=== PATIENT | male | born 1980 | race Caucasian/White ===

== ENCOUNTER 2020-05-20 04:44 | Observation (INO) | payer OTHER ==
[2020-05-20] MEDS ORDERED: SODIUM CHLORIDE 0.9% 1,000 ML IV STA (04:54)
[2020-05-20] MEDS ORDERED: NALOXONE 0.4 MG/ML 1 ML VIAL IV STA (04:54)
[2020-05-20 04:56] VITALS: TEMP 97.3
[2020-05-20 04:57] LABS: Glucose,Whole Blood 205 mg/dL (75-99)
--- NOTE | 2020-05-20 04:57 | ED ---
Overdose HPI - General Chief Complaint: Overdose Stated Complaint: Overdose Time Seen by Provider: 05/20/20 04:47 Source: EMS, RN notes reviewed, old records reviewed Mode of arrival: EMS Limitations: altered mental status, physical limitation - History of Present Illness Initial Comments: This is a 40-year-old male DF for evaluation of likely overdose. Heroin and opiate overdose, unsure of overdose medications patient initially did respond to Narcan as he is improved his respiratory rate and breathing status although he is significantly still remains unresponsive. History of pain from EMS and patient's prior charting MD Complaint: intentional overdose, accidental overdose, other (Unsure situation surrounding overdose) -: unknown Intent: unknown Context: Intentional Overdose: drug/ETOH problems Context: Accidental Overdose: wanted to get high Associated Symptoms: depression, hallucinations Treatments Prior to Arrival: none - Related Data Previous Rx's Medication Instructions Recorded Divalproex [Depakote] 1,000 mg PO HS #7 dose 06/29/15 Divalproex [Depakote] 500 mg PO DAILY #7 tablet.dr 06/29/15 Escitalopram [Lexapro] 10 mg PO DAILY #7 tab 06/29/15 Paliperidone [Invega] 9 mg PO DAILY #7 dose 06/29/15 Triamcinolone 0.1% Cream [Kenalog 1 applic TOPICAL BID #1 tube 06/29/15 0.1% Cream] Trihexyphenidyl [Artane] 4 mg PO AC-TID #21 dose 06/29/15 buPROPion XL [Wellbutrin XL] 150 mg PO DAILY #7 tab.er.24h 06/29/15 clonazePAM [KlonoPIN] 0.5 mg PO BID@0800,1300 #14 tab 06/29/15 clonazePAM [KlonoPIN] 2 mg PO DAILY@2000 #7 dose 06/29/15 hydrOXYzine pamoate [Vistaril] 50 mg PO HS #7 dose 06/29/15 Allergies Allergy/AdvReac Type Severity Reaction Status Date / Time morphine Allergy Unknown Verified 06/23/15 11:25 Review of Systems ROS Statement: Those systems with pertinent positive or pertinent negative responses have been documented in the HPI. ROS Other: All systems not noted in ROS Statement are negative. Past Medical History Past Medical History: Seizure Disorder Additional Past Medical History / Comment(s): hill, rosacea History of Any Multi-Drug Resistant Organisms: None Reported Additional Past Surgical History / Comment(s): skin grafts from [place] Past Anesthesia/Blood Transfusion Reactions: No Reported Reaction Past Psychological History: Bipolar, Schizophrenia Past Alcohol Use History: None Reported Past Drug Use History: Marijuana - Past Family History Mother Family Medical History: COPD Additional Family Medical History / Comment(s): Mother is alive at age 51 with n o major medical problems. Father Family Medical History: No Reported History Additional Family Medical History / Comment(s): Father is alive at age 52 with no major medical problems. Sister(s) Additional Family Medical History / Comment(s): Patient has 1 sister with no major medical problems. General Exam General appearance: alert, in no apparent distress Head exam: Present: atraumatic, normocephalic, normal inspection Eye exam: Present: normal appearance, PERRL, EOMI. Absent: scleral icterus, conjunctival injection, periorbital swelling ENT exam: Present: normal exam, mucous membranes moist Neck exam: Present: normal inspection. Absent: tenderness, meningismus, lymphadenopathy Respiratory exam: Present: normal lung sounds bilaterally. Absent: respiratory distress, wheezes, rales, rhonchi, stridor Cardiovascular Exam: Present: regular rate, normal rhythm, normal heart sounds. Absent: systolic murmur, diastolic murmur, rubs, gallop, clicks GI/Abdominal exam: Present: soft, normal bowel sounds. Absent: distended, tenderness, guarding, rebound, rigid Extremities exam: Present: normal inspection, full ROM, normal capillary refill. Absent: tenderness, pedal edema, joint swelling, calf tenderness Back exam: Present: normal inspection Neurological exam: Present: alert, oriented X3, CN II-XII intact Psychiatric exam: Present: normal affect, normal mood Skin exam: Present: warm, dry, intact, normal color. Absent: rash Course Vital Signs 05/20/20 05/20/20 05/20/20 04:45 04:52 05:05 Temperature 97.4 F L 97.3 F L Pulse Rate 85 79 73 Respiratory 14 14 16 Rate Blood Pressure 132/97 141/93 138/90 O2 Sat by Pulse 100 97 100 Oximetry 05/20/20 05/20/20 05/20/20 05:08 05:20 05:35 Temperature Pulse Rate 74 73 Respiratory 16 16 16 Rate Blood Pressure 133/90 107/72 O2 Sat by Pulse 99 98 Oximetry 05/20/20 05:50 Temperature Pulse Rate 79 Respiratory 16 Rate Blood Pressure 105/68 O2 Sat by Pulse 97 Oximetry - Reevaluation(s) Reevaluation #1: 05/20/20 04:57 Medical records reviewed Reevaluation #2: 05/20/20 04:57 Family response to Narcan low patient still remains somnolent and unresponsive to painful stimuli Reevaluation #3: 05/20/20 06:13 Patient's family at bedside, explaining updated and patient's situation, questions answered Reevaluation #4: 05/20/20 06:13 Patient still remains mildly response to painful stimuli, and maintaining airway and oxygenation Medical Decision Making - Medical Decision Making 40 male to the ER for overdose multiple. Overdose, also heroin use, attempt appears to be and suicide attempt. [place] for continued suicide monitoring and need for Narcan - Lab Data Result diagrams: 05/20/20 04:59 05/20/20 04:59 Lab Results 05/20/20 05/20/20 05/20/20 Range/Units 04:54 04:59 04:59 WBC 8.1 (3.8-10.6) k/uL RBC 4.72 (4.30-5.90) m/uL Hgb 14.6 (13.0-17.5) gm/dL Hct 47.2 (39.0-53.0) % MCV 99.9 (80.0-100.0) fL MCH 31.0 (25.0-35.0) pg MCHC 31.0 (31.0-37.0) g/dL RDW 13.7 (11.5-15.5) % Plt Count 295 (150-450) k/uL Neutrophils % 49 % Lymphocytes % 38 % Monocytes % 7 % Eosinophils % 4 % Basophils % 0 % Neutrophils # 4.0 (1.3-7.7) k/uL Lymphocytes # 3.0 (1.0-4.8) k/uL Monocytes # 0.6 (0-1.0) k/uL Eosinophils # 0.3 (0-0.7) k/uL Basophils # 0.0 (0-0.2) k/uL PT 10.7 (9.0-12.0) sec INR 1.0 (<1.2) Sodium (137-145) mmol/L Potassium (3.5-5.1) mmol/L Chloride (98-107) mmol/L Carbon Dioxide (22-30) mmol/L Anion Gap mmol/L BUN (9-20) mg/dL Creatinine (0.66-1.25) mg/dL Est GFR (CKD-EPI)AfAm (>60 ml/min/1.73 sqM) Est GFR (CKD-EPI)NonAf (>60 ml/min/1.73 sqM) Glucose (74-99) mg/dL POC Glucose (mg/dL) 205 H (75-99) mg/dL POC Glu Subacute Nurse ID Isac, Tyrone Calcium (8.4-10.2) mg/dL Total Bilirubin (0.2-1.3) mg/dL AST (17-59) U/L ALT (4-49) U/L Alkaline Phosphatase (38-126) U/L Creatine Kinase (55-170) U/L Troponin I (0.000-0.034) ng/mL Total Protein (6.3-8.2) g/dL Albumin (3.5-5.0) g/dL Salicylates mg/dL Acetaminophen ug/mL Serum Alcohol mg/dL 05/20/20 05/20/20 Range/Units 04:59 04:59 WBC (3.8-10.6) k/uL RBC (4.30-5.90) m/uL Hgb (13.0-17.5) gm/dL Hct (39.0-53.0) % MCV (80.0-100.0) fL MCH (25.0-35.0) pg MCHC (31.0-37.0) g/dL RDW (11.5-15.5) % Plt Count (150-450) k/uL Neutrophils % % Lymphocytes % % Monocytes % % Eosinophils % % Basophils % % Neutrophils # (1.3-7.7) k/uL Lymphocytes # (1.0-4.8) k/uL Monocytes # (0-1.0) k/uL Eosinophils # (0-0.7) k/uL Basophils # (0-0.2) k/uL PT (9.0-12.0) sec INR (<1.2) Sodium 137 (137-145) mmol/L Potassium 4.5 (3.5-5.1) mmol/L Chloride 107 (98-107) mmol/L Carbon Dioxide 21 L (22-30) mmol/L Anion Gap 9 mmol/L BUN 11 (9-20) mg/dL Creatinine 0.94 (0.66-1.25) mg/dL Est GFR (CKD-EPI)AfAm >90 (>60 ml/min/1.73 sqM) Est GFR (CKD-EPI)NonAf >90 (>60 ml/min/1.73 sqM) Glucose 224 H (74-99) mg/dL POC Glucose (mg/dL) (75-99) mg/dL POC Glu Subacute Nurse ID Calcium 9.0 (8.4-10.2) mg/dL Total Bilirubin 0.5 (0.2-1.3) mg/dL AST 35 (17-59) U/L ALT 19 (4-49) U/L Alkaline Phosphatase 71 (38-126) U/L Creatine Kinase 144 (55-170) U/L Troponin I <0.012 (0.000-0.034) ng/mL Total Protein 6.8 (6.3-8.2) g/dL Albumin 3.9 (3.5-5.0) g/dL Salicylates <1.0 mg/dL Acetaminophen <10.0 ug/mL Serum Alcohol <10 mg/dL - EKG Data -: EKG Interpreted by Me (EKG is sinus rhythm 78 KS 188 QRS 92 QTC 467) Disposition Clinical Impression: Panic anxiety syndrome, Polysubstance dependence, Poisoning by opiates and related narcotics, other, Suicide attempt by multiple drug overdose Disposition: ADMITTED IP TO THIS HOSP Condition: Fair Is patient prescribed a controlled substance at d/c from ED?: No Referrals: None,Stated [Primary Care Provider] - 1-2 days
[2020-05-20 05:19] LABS: Basophils % (A) 0 %; Eosinophils # (A) 0.3 k/uL (0-0.7); Eosinophils % (A) 4 %; HCT 47.2 % (39.0-53.0); HGB 14.6 gm/dL (13.0-17.5); Lymphocytes % (A) 38 %; MCV 99.9 fL (80.0-100.0); Mean Platelet Volume 8.5; Monocytes # (A) 0.6 k/uL (0-1.0); Monocytes % (A) 7 %; Neutrophils % (A) 49 %; Platelet Count 295 k/uL (150-450); RBC 4.72 m/uL (4.30-5.90); RDW 13.7 % (11.5-15.5); WBC 8.1 k/uL (3.8-10.6)
[2020-05-20 05:25] LABS: Prothrombin Time 10.7 sec (9.0-12.0)
[2020-05-20 05:37] LABS: ALT 19 U/L (4-49); AST 35 U/L (17-59); Acetaminophen <10.0 ug/mL; African American GFR (CKD) >90 (>60 ml/min/1.73 sqM); Albumin 3.9 g/dL (3.5-5.0); Alcohol <10 mg/dL; Alkaline Phosphatase 71 U/L (38-126); Anion Gap 9 mmol/L; Blood Urea Nitrogen 11 mg/dL (9-20); Carbon Dioxide 21 mmol/L (22-30); Chloride 107 mmol/L (98-107); Creatine Kinase 144 U/L (55-170); Glucose 224 mg/dL (74-99); Non-African American GFR(CKD) >90 (>60 ml/min/1.73 sqM); Potassium 4.5 mmol/L (3.5-5.1); Salicylate <1.0 mg/dL; Sodium 137 mmol/L (137-145); Total Bilirubin 0.5 mg/dL (0.2-1.3); Total Protein 6.8 g/dL (6.3-8.2)
[2020-05-20] MEDS ORDERED: SODIUM CHLORIDE 0.9% 1,000 ML IV ONE (06:12)
[2020-05-20 13:14] VITALS: BP 99/64; PULSE 59; RESP 17
--- NOTE | 2020-05-20 13:54 | P.DS ---
Providers Date of admission: 05/20/20 06:12 Attending physician: Mateo Bellamy Consults: 05/20/20 06:12 Consult Physician Routine Consulting Provider: Tyree Mendoza Reason/Comments: suicideAttemptOD Do you want consulting provider notified?: Yes Primary care physician: Stated None Hospital Course: Please refer to my HPI for further details Patient Condition at Discharge: Fair Plan - Discharge Summary Discharge Rx Participant: No New Discharge Prescriptions: No Action Propranolol [Inderal] 20 mg PO HS Mirtazapine [Remeron] 45 mg PO HS Citalopram Hydrobromide [CeleXA] 40 mg PO DAILY Benztropine Mesylate [Cogentin] 2 mg PO HS OLANZapine [ZyPREXA] 20 mg PO HS Discharge Medication List Benztropine Mesylate [Cogentin] 2 mg PO HS 05/20/20 [History] Citalopram Hydrobromide [CeleXA] 40 mg PO DAILY 05/20/20 [History] Mirtazapine [Remeron] 45 mg PO HS 05/20/20 [History] OLANZapine [ZyPREXA] 20 mg PO HS 05/20/20 [History] Propranolol [Inderal] 20 mg PO HS 05/20/20 [History] Follow up Appointment(s)/Referral(s): Doc Husain MD [STAFF PHYSICIAN] - 1 Week Discharge Disposition: HOME SELF-CARE
--- NOTE | 2020-05-20 13:54 | P.HPIM ---
History of Present Illness 40-year-old male was admitted after her unknown dose. Patient was starting her on apparently patient had denied using any IV heroine. Patient today in the past did use multiple other drugs. Patient received Narcan with improvement in symptoms is subsequently admitted to the hospital patient presently has a sitter and psychiatry was consulted patient a admits to depression but denied any suicidal ideations. And the patient wanted to go home. Patient does have mildly elevated blood sugars after hemoglobin A1c patient doesn't have a PCP patient was referred to PCP. If cleared by psychiatric patient the will be discharged and hemoglobin A1c need to be followed as an outpatient. Review of Systems REVIEW OF SYSTEMS: CONSTITUTIONAL: No fever, no malaise, no fatigue. HEENT: No recent visual problems or hearing problems. Denied any sore throat. CARDIOVASCULAR: No chest pain, orthopnea, PND, no palpitations, no syncope. PULMONARY: No shortness of breath, no cough, no hemoptysis. GASTROINTESTINAL: No diarrhea, no nausea, no vomiting, no abdominal pain. NEUROLOGICAL: No headaches, no weakness, no numbness. HEMATOLOGICAL: Denies any bleeding or petechiae. GENITOURINARY: Denies any burning micturition, frequency, or urgency. MUSCULOSKELETAL/RHEUMATOLOGICAL: Denies any joint pain, swelling, or any muscle pain. ENDOCRINE: Denies any polyuria or polydipsia. The rest of the 14-point review of systems is negative. Past Medical History Past Medical History: Seizure Disorder Additional Past Medical History / Comment(s): hill, rosacea History of Any Multi-Drug Resistant Organisms: None Reported Additional Past Surgical History / Comment(s): skin grafts from [place] Past Anesthesia/Blood Transfusion Reactions: No Reported Reaction Past Psychological History: Bipolar, Schizophrenia Smoking Status: Current every day smoker Past Alcohol Use History: None Reported Additional Past Alcohol Use History / Comment(s): Patient smokes 1 pack per day since he was 14 years of age. He is also been using cocaine and marijuana. He denies any IV drug use. He is currently living with his father. He is not employed and states is because he is in trouble. Patient is noted to have a tether on his ankle. Past Drug Use History: Marijuana - Past Family History Mother Family Medical History: COPD Additional Family Medical History / Comment(s): Mother is alive at age 51 with no major medical problems. Father Family Medical History: No Reported History Additional Family Medical History / Comment(s): Father is alive at age 52 with no major medical problems. Sister(s) Additional Family Medical History / Comment(s): Patient has 1 sister with no major medical problems. Medications and Allergies Home Medications Medication Instructions Recorded Confirmed Type Benztropine Mesylate [Cogentin] 2 mg PO HS 05/20/20 05/20/20 History Citalopram Hydrobromide [CeleXA] 40 mg PO DAILY 05/20/20 05/20/20 History Mirtazapine [Remeron] 45 mg PO HS 05/20/20 05/20/20 History OLANZapine [ZyPREXA] 20 mg PO HS 05/20/20 05/20/20 History Propranolol [Inderal] 20 mg PO HS 05/20/20 05/20/20 History Allergies Allergy/AdvReac Type Severity Reaction Status Date / Time morphine Allergy Unknown Verified 06/23/15 11:25 Physical Exam Vitals: Vital Signs Temp Pulse Pulse Resp BP BP Pulse Ox 05/20/20 07:45 97.3 F L 59 L 17 99/64 98 05/20/20 07:00 75 16 116/75 99 05/20/20 06:05 75 16 121/72 99 05/20/20 05:50 79 16 105/68 97 05/20/20 05:35 73 16 107/72 98 05/20/20 05:20 74 16 133/90 99 05/20/20 05:08 16 05/20/20 05:05 73 16 138/90 100 05/20/20 04:52 97.3 F L 79 14 141/93 97 05/20/20 04:45 97.4 F L 85 14 132/97 100 Intake and Output 05/19/20 05/20/20 05/20/20 22:59 06:59 14:59 Other: Weight 83.915 kg 83.915 kg PHYSICAL EXAMINATION: GENERAL: The patient is alert and oriented x3, not in any acute distress. Well developed, well nourished. HEENT: Pupils are round and equally reacting to light. EOMI. No scleral icterus. No conjunctival pallor. Normocephalic, atraumatic. No pharyngeal erythema. No thyromegaly. CARDIOVASCULAR: S1 and S2 present. No murmurs, rubs, or gallops. PULMONARY: Chest is clear to auscultation, no wheezing or crackles. ABDOMEN: Soft, nontender, nondistended, normoactive bowel sounds. No palpable organomegaly. MUSCULOSKELETAL: No joint swelling or deformity. EXTREMITIES: No cyanosis, clubbing, or pedal edema. NEUROLOGICAL: Gross neurological examination did not reveal any focal deficits. SKIN: No rashes. Results CBC & Chem 7: 05/20/20 04:59 05/20/20 04:59 Labs: Abnormal Lab Results - Last 24 Hours (Table) 05/20/20 05/20/20 Range/Units 04:54 04:59 Carbon Dioxide 21 L (22-30) mmol/L Glucose 224 H (74-99) mg/dL POC Glucose (mg/dL) 205 H (75-99) mg/dL Thrombosis Risk Factor Assmnt - Choose All That Apply Any of the Below Risk Factors Present?: No Other Risk Factors: No Other congenital or acquired thrombophilia - If yes, enter type in comment: No Thrombosis Risk Factor Assessment Level: Very Low Risk Assessment and Plan Plan: -Overdose on her heroine appears to be excellent low-dose but psychiatrically will evaluate the patient psychiatry was consulted from ER. Patient is alert oriented 3 at this time. Medically stable. Urine drug screen will be obtained -Elevated blood glucose and I'll repeat 2 with an Accu-Chek, we'll Allsop an hem oglobin A1c will be referred to PCP -Seizure disorder: Will verify his antiseizure medications with pharmacy patient was subsequently started on that -Bipolar/schizophrenia -Nicotine abuse: Counseling was provided -Multiple other drug abuse extensive counseling regarding this was provided -Depression he denied any suicidal ideations to me will be evaluated by psychiatric. Patient will be discharged today
[2020-05-20 20:27] LABS: Hemoglobin A1C 5.9 % (4.0-6.0)
[2020-05-20] MEDS ORDERED: PROPRANOLOL 20 MG TAB PO SCH (21:00)
[2020-05-20] MEDS ORDERED: OLANZapine 10 MG TAB PO SCH (21:00)
[2020-05-20] MEDS ORDERED: MIRTAZAPINE 45 MG TABLET PO SCH (21:00)
[2020-05-20] MEDS ORDERED: BENZTROPINE MESYLATE 1 MG TAB PO SCH (21:00)
[2020-05-21] MEDS ORDERED: CITALOPRAM HYDROBROMIDE 20 MG TAB PO SCH (09:00)
== END 2020-05-20 14:17 | disposition home or self-care (01) ==
LOC: EC 04:44 → 4SSUR 06:12
PROVIDERS: ADMIT Hospitalist; ATTEND Hospitalist
DX: T40.1X2A Poisoning by heroin, intentional self-harm, initial encounter (principal); F41.0 Panic disorder [episodic paroxysmal anxiety]; R73.9 Hyperglycemia, unspecified; G40.909 Epilepsy, unspecified, not intractable, without status epilepticus; F31.9 Bipolar disorder, unspecified; F20.9 Schizophrenia, unspecified; F17.210 Nicotine dependence, cigarettes, uncomplicated; F11.90 Opioid use, unspecified, uncomplicated; F14.90 Cocaine use, unspecified, uncomplicated; F12.90 Cannabis use, unspecified, uncomplicated; L71.9 Rosacea, unspecified; Z71.51 Drug abuse counseling and surveillance of drug abuser; Z71.6 Tobacco abuse counseling; Z79.899 Other long term (current) drug therapy; Z79.52 Long term (current) use of systemic steroids; Z88.5 Allergy status to narcotic agent; Z87.828 Personal history of other (healed) physical injury and trauma; Z98.890 Other specified postprocedural states; Z82.5 Family history of asthma and other chronic lower respiratory diseases; Y92.9 Unspecified place or not applicable
CPT/HCPCS: 96374; 99285; 36415; 93005; 80053; 82550; 84484; 85025; 85610; 83520; 83036; G0378; G0480 ×2; J2310; 80320; 80329